=== PATIENT | female | born 1940 | race Caucasian/White ===

== ENCOUNTER 2017-09-18 19:41 | Inpatient (IN) | payer MEDICARE, OTHER ==
[~2017-09-18] VITALS: Ht 172.7 cm; Wt 75.6 kg
[2017-09-18] MEDS ORDERED: MELO-107 PO (20:01)
[2017-09-18] MEDS ORDERED: OMEP10 PO (20:01)
[2017-09-18 21:12] LABS: BASOPHILS # (AUTO) 0.03 K/uL (0.00-0.20); BASOPHILS % (AUTO) 0.3 % (0.0-2.0); EOSINOPHILS # (AUTO) 0.19 K/uL (0.00-0.70); EOSINOPHILS % (AUTO) 2.26 % (1.0-6.0); HEMATOCRIT 35.1 % (36-46); HEMOGLOBIN 11.6 g/dL (12.0-16.0); LYMPHOCYTES # (AUTO) 1.1 K/uL (1.0-4.8); LYMPHOCYTES % (AUTO) 13.5 % (22.0-44.0); MEAN CORPUSCULAR HEMOGLOBIN 27.6 pg (26.0-34.0); MEAN CORPUSCULAR HGB CONC 33.1 G/dL (31.0-37.0); MEAN CORPUSCULAR VOLUME 83 fL (80-100); MONOCYTES # (AUTO) 0.6 K/uL (0.1-1.0); MONOCYTES % (AUTO) 7.1 % (2.0-9.0); NEUTROPHILS # (AUTO) 6.5 K/uL (1.8-7.7); NEUTROPHILS % (AUTO) 76.9 % (40.0-70.0); PLATELET COUNT (AUTO) 237 K/uL (150-450); RED BLOOD CELL COUNT(AUTO) 4.21 MIL/uL (4.00-5.20); RED CELL DISTRIBUTION WIDTH 17.4 % (11.5-14.5); WHITE BLOOD COUNT (AUTO) 8.5 K/uL (4.5-11.0)
[2017-09-18 21:24] LABS: ANION GAP 12 mmol/L (8-16); CALCIUM, TOTAL 8.9 mg/dL (8.8-10.5); CARBON DIOXIDE 24 mmol/L (22-29); CHLORIDE 107 mmol/L (98-107); CREATININE 1.19 mg/dL (0.60-1.30); GLOMERULAR FILTR. RATE CALC 44 mL/min (>60); POTASSIUM 3.3 mmol/L (3.5-5.1); SODIUM SERUM 143 mmol/L (136-145); UREA NITROGEN, BLOOD 24 mg/dL (7-18)
[2017-09-18 21:26] LABS: PROTHROMBIN TIME 10.9 SEC (9.4-11.6)
[2017-09-18] MEDS ORDERED: SODIUM CHLORIDE 0.9% 1,000 ML IV ONE (21:45)
[2017-09-18 21:49] LABS: ALANINE AMINOTRANSFERASE 23 U/L (12-78); ALBUMIN 3.3 g/dL (3.4-5.0); ASPARTATE AMINOTRANSFERASE 19 U/L (15-37); BILIRUBIN,TOTAL 0.4 mg/dL (0.1-1.0); CREATINE KINASE MB 1.2 ng/mL (0-5); CREATINE KINASE, TOTAL 82 U/L (26-192); TOTAL PROTEIN, SERUM 6.9 g/dL (6.4-8.2)
[2017-09-18] MEDS ORDERED: MAGNESIUM HYDROXIDE SUSPENSION 30 ML UDCUP PO PRN (22:00)
[2017-09-18 22:10] LABS: B-TYPE NATRIURETIC PEPTIDE 15 pg/mL (0-100)
[2017-09-18 22:31] LABS: RBC MORPHOLOGY COMMENT ABNORMAL RBC MORPH
[2017-09-18 23:25] VITALS: BP 113/69
[2017-09-18] MEDS ORDERED: PNEUMOCOCCAL VACCINE POLYVALENT 0.5 ML VIAL [PPSV23] IM ONE (23:45)
[2017-09-19] VITALS (8 sets, daily range): BP systolic 81–130; BP diastolic 55–96
[2017-09-19] MEDS ORDERED: INFLUENZA VIRUS VACCINE QVS 2017-18 (3YR+)/PF 60 MCG/0.5 ML SYRINGE IM ONE (01:30)
[2017-09-19 02:57] LABS: APPEARANCE,URINE CLOUDY (CLEAR); GLUCOSE, URINE (UA) NEGATIVE (NEGATIVE); KETONES,URINE TRACE mg/dL (NEGATIVE); LEUKOCYTE ESTERASE ,URINE MODERATE (NEGATIVE); OCCULT BLOOD,URINE LARGE (NEGATIVE); PROTEIN,URINE TRACE (NEGATIVE)
[2017-09-19 02:59] LABS: ADD UA MICROSCOPIC YES
[2017-09-19 03:13] LABS: SQUAMOUS EPITHELIAL CELL,UR Few /LPF (None Seen)
[2017-09-19] MEDS: POTASSIUM CHLORIDE 20 MEQ ER TABLET PO PRN ×2 (05:10→11:26)
[2017-09-19] MEDS ORDERED: PEG 3350/NA SULF,BICARB,CL/KCL 4000 ML SOLUTION PO ONE (08:30)
[2017-09-19] MEDS: PANTOPRAZOLE SODIUM 40 MG/VIAL IVP SCH (09:26)
[2017-09-19] MEDS: DOCUSATE SODIUM 100 MG CAPSULE PO SCH ×2 (09:26→21:00)
[2017-09-19 18:46] LABS: BASOPHILS % (AUTO) 0.3 % (0.0-2.0); EOSINOPHILS % (AUTO) 2.4 % (1.0-6.0); HEMOGLOBIN 10.2 g/dL (12.0-16.0); LYMPHOCYTES % (AUTO) 12.9 % (22.0-44.0); MEAN CORPUSCULAR HEMOGLOBIN 27.3 pg (26.0-34.0); MEAN CORPUSCULAR HGB CONC 32.9 G/dL (31.0-37.0); MEAN CORPUSCULAR VOLUME 83 fL (80-100); MONOCYTES # (AUTO) 0.5 K/uL (0.1-1.0); MONOCYTES % (AUTO) 6.7 % (2.0-9.0); NEUTROPHILS # (AUTO) 5.9 K/uL (1.8-7.7); NEUTROPHILS % (AUTO) 77.7 % (40.0-70.0); PLATELET COUNT (AUTO) 219 K/uL (150-450); RED BLOOD CELL COUNT(AUTO) 3.74 MIL/uL (4.00-5.20); RED CELL DISTRIBUTION WIDTH 17.6 % (11.5-14.5); WHITE BLOOD COUNT (AUTO) 7.6 K/uL (4.5-11.0)
[2017-09-19] MEDS ORDERED: SODIUM CHLORIDE 0.9% 1,000 ML IV ONE (21:45)
[2017-09-19 22:16] LABS: RBC MORPHOLOGY COMMENT ABNORMAL RBC MORPH
[2017-09-19 22:33] LABS: BASOPHILS % (AUTO) 0.1 % (0.0-2.0); EOSINOPHILS % (AUTO) 0.9 % (1.0-6.0); HEMATOCRIT 22.3 % (36-46); HEMOGLOBIN 7.4 g/dL (12.0-16.0); LYMPHOCYTES # (AUTO) 0.9 K/uL (1.0-4.8); LYMPHOCYTES % (AUTO) 7.3 % (22.0-44.0); MEAN CORPUSCULAR HEMOGLOBIN 27.6 pg (26.0-34.0); MEAN CORPUSCULAR HGB CONC 33.4 G/dL (31.0-37.0); MEAN CORPUSCULAR VOLUME 83 fL (80-100); MONOCYTES # (AUTO) 0.5 K/uL (0.1-1.0); MONOCYTES % (AUTO) 4.6 % (2.0-9.0); NEUTROPHILS # (AUTO) 10.2 K/uL (1.8-7.7); PLATELET COUNT (AUTO) 172 K/uL (150-450); RED BLOOD CELL COUNT(AUTO) 2.69 MIL/uL (4.00-5.20); RED CELL DISTRIBUTION WIDTH 17.8 % (11.5-14.5); WHITE BLOOD COUNT (AUTO) 11.7 K/uL (4.5-11.0)
[2017-09-19 22:34] LABS: NEUTROPHILS % (AUTO) 87.1 % (40.0-70.0)
[2017-09-19] MEDS: SODIUM CHLORIDE 0.9% 1,000 ML IV SCH (22:41)
[2017-09-19] MEDS ORDERED: SODIUM CHLORIDE 0.9% 250 ML IV ONE (23:23)
[2017-09-20] VITALS (14 sets, daily range): BP systolic 83–129; BP diastolic 56–94
[2017-09-20 06:23] LABS: HEMOGLOBIN 9.3 g/dL (12.0-16.0)
[2017-09-20] MEDS: PANTOPRAZOLE SODIUM 40 MG/VIAL IVP SCH (08:18)
[2017-09-20] MEDS: DOCUSATE SODIUM 100 MG CAPSULE PO SCH ×2 (09:00→21:00)
[2017-09-20] MEDS: SODIUM CHLORIDE 0.9% 1,000 ML IV SCH (09:25)
[2017-09-20 11:32] LABS: HEMATOCRIT 26.1 % (36-46); HEMOGLOBIN 8.7 g/dL (12.0-16.0)
[2017-09-20] MEDS ORDERED: SODIUM CHLORIDE 0.9% 1,000 ML IV ONE ×2 (13:40→14:00)
[2017-09-20 17:55] LABS: HEMATOCRIT 23.8 % (36-46); HEMOGLOBIN 7.9 g/dL (12.0-16.0)
[2017-09-20] MEDS ORDERED: IOVERSOL 320 MG/ML 100 ML VIAL ONE (19:08)
[2017-09-20] MEDS ORDERED: SODIUM CHLORIDE 0.9% 500 ML IV ONE (22:44)
[2017-09-21] VITALS (10 sets, daily range): BP systolic 106–137; BP diastolic 52–83
[2017-09-21] MEDS ORDERED: PROPOFOL 1% 20 ML VIAL IVP ONE (00:47)
[2017-09-21] MEDS ORDERED: LIDOCAINE HCL/PF 2% 5 ML VIAL IM ONE (00:47)
[2017-09-21] MEDS: SODIUM CHLORIDE 0.9% 1,000 ML IV SCH (01:25)
[2017-09-21 05:39] LABS: ANION GAP 8 mmol/L (8-16); CALCIUM, TOTAL 7.7 mg/dL (8.8-10.5); CARBON DIOXIDE 24 mmol/L (22-29); CHLORIDE 113 mmol/L (98-107); CREATININE 0.71 mg/dL (0.60-1.30); GLOMERULAR FILTR. RATE CALC > 60 mL/min (>60); POTASSIUM 3.2 mmol/L (3.5-5.1); SODIUM SERUM 145 mmol/L (136-145); UREA NITROGEN, BLOOD 5 mg/dL (7-18)
[2017-09-21] MEDS: ACETAMINOPHEN 325 MG TABLET PO PRN (06:03)
[2017-09-21 06:06] LABS: BASOPHILS % (AUTO) 0.2 % (0.0-2.0); EOSINOPHILS % (AUTO) 2.2 % (1.0-6.0); HEMATOCRIT 24.5 % (36-46); HEMOGLOBIN 8.3 g/dL (12.0-16.0); MEAN CORPUSCULAR HEMOGLOBIN 27.9 pg (26.0-34.0); MEAN CORPUSCULAR HGB CONC 33.7 G/dL (31.0-37.0); MEAN CORPUSCULAR VOLUME 83 fL (80-100); MONOCYTES # (AUTO) 0.6 K/uL (0.1-1.0); MONOCYTES % (AUTO) 7.5 % (2.0-9.0); NEUTROPHILS # (AUTO) 5.9 K/uL (1.8-7.7); NEUTROPHILS % (AUTO) 77.1 % (40.0-70.0); PLATELET COUNT (AUTO) 151 K/uL (150-450); RED BLOOD CELL COUNT(AUTO) 2.97 MIL/uL (4.00-5.20); RED CELL DISTRIBUTION WIDTH 17.2 % (11.5-14.5); WHITE BLOOD COUNT (AUTO) 7.6 K/uL (4.5-11.0)
[2017-09-21] MEDS: POTASSIUM CHLORIDE 20 MEQ ER TABLET PO PRN (06:37)
[2017-09-21 06:54] LABS: RBC MORPHOLOGY COMMENT ABNORMAL RBC MORPH
[2017-09-21] MEDS: DOCUSATE SODIUM 100 MG CAPSULE PO SCH ×2 (08:44→20:25)
[2017-09-21] MEDS: PANTOPRAZOLE SODIUM 40 MG/VIAL IVP SCH (08:44)
[2017-09-22] VITALS (25 sets, daily range): BP systolic 96–142; BP diastolic 50–80
[2017-09-22] MEDS ORDERED: SODIUM CHLORIDE 0.9% 0 ML IV ONE (05:06)
[2017-09-22] MEDS ORDERED: SODIUM CHLORIDE 0.9% 500 ML IV ONE (05:07)
[2017-09-22] MEDS ORDERED: SODIUM CHLORIDE 0.9% 250 ML IV ONE (05:15)
[2017-09-22] MEDS: POTASSIUM CHLORIDE 20 MEQ ER TABLET PO PRN (05:16)
[2017-09-22 05:43] LABS: HEMATOCRIT 20.3 % (36-46); HEMOGLOBIN 6.8 g/dL (12.0-16.0)
[2017-09-22] MEDS: PANTOPRAZOLE SODIUM 40 MG/VIAL IVP SCH (08:06)
[2017-09-22] MEDS: DOCUSATE SODIUM 100 MG CAPSULE PO SCH ×2 (08:06→20:16)
[2017-09-22] MEDS: PIPERACILLIN/TAZO 3.375 GM/D5W 50 ML IV SCH ×3 (09:37→21:19)
[2017-09-22 11:55] LABS: INR 1.1 (0.9-1.1); PROTHROMBIN TIME 11.1 SEC (9.4-11.6)
[2017-09-22] MEDS ORDERED: IOVERSOL 350 MG/ML 100 ML VIAL ONE (12:19)
[2017-09-22 14:29] LABS: BASOPHILS % (AUTO) 0.4 % (0.0-2.0); EOSINOPHILS % (AUTO) 2.5 % (1.0-6.0); HEMATOCRIT 29.2 % (36-46); HEMOGLOBIN 10.1 g/dL (12.0-16.0); LYMPHOCYTES # (AUTO) 0.8 K/uL (1.0-4.8); LYMPHOCYTES % (AUTO) 10.8 % (22.0-44.0); MEAN CORPUSCULAR HEMOGLOBIN 29.3 pg (26.0-34.0); MEAN CORPUSCULAR HGB CONC 34.5 G/dL (31.0-37.0); MEAN CORPUSCULAR VOLUME 85 fL (80-100); MONOCYTES # (AUTO) 0.5 K/uL (0.1-1.0); MONOCYTES % (AUTO) 6.5 % (2.0-9.0); NEUTROPHILS # (AUTO) 5.7 K/uL (1.8-7.7); NEUTROPHILS % (AUTO) 79.8 % (40.0-70.0); PLATELET COUNT (AUTO) 158 K/uL (150-450); RED BLOOD CELL COUNT(AUTO) 3.44 MIL/uL (4.00-5.20); RED CELL DISTRIBUTION WIDTH 16.6 % (11.5-14.5); WHITE BLOOD COUNT (AUTO) 7.1 K/uL (4.5-11.0)
[2017-09-22] MEDS ORDERED: MIDAZOLAM HCL 2 MG/2 ML VIAL ONE (14:38)
[2017-09-22] MEDS ORDERED: FentaNYL CITRATE-PF 100 MCG/2 ML VIAL ONE (14:38)
[2017-09-22] MEDS ORDERED: LIDOCAINE HCL/PF 1% 30 ML VIAL ONE (14:38)
[2017-09-22] MEDS ORDERED: HEPARIN SODIUM 1000 UNITS/NS 500 ML ONE ×2 (14:38→14:54)
[2017-09-22] MEDS ORDERED: IOHEXOL 300 MG/ML 100 ML VIAL ONE (15:45)
[2017-09-22] MEDS ORDERED: IOHEXOL 300 MG/ML 50 ML VIAL ONE (16:22)
[2017-09-22] MEDS ORDERED: GLUCAGON,HUMAN RECOMBINANT 1 MG VIAL ONE (16:27)
[2017-09-22] MEDS ORDERED: GELATIN SPONGE,ABSORBABLE 12-7 MM TP ONE (16:31)
[2017-09-22] MEDS ORDERED: GLUCAGON,HUMAN RECOMBINANT 1 MG VIAL IVP ONE (16:32)
[2017-09-22] MEDS ORDERED: MIDAZOLAM HCL 2 MG/2 ML VIAL IVP ONE (17:05)
[2017-09-22] MEDS ORDERED: FentaNYL CITRATE-PF 100 MCG/2 ML VIAL IVP ONE (17:10)
[2017-09-22] MEDS ORDERED: FentaNYL CITRATE-PF 100 MCG/2 ML VIAL IVP PRN (17:45)
[2017-09-22] MEDS: OxyCODONE HCL/ACETAMINOPHEN 10-325 MG TABLET PO PRN ×2 (18:16→22:10)
[2017-09-22] MEDS: CeFAZolin 1 GM/DEXTROSE 50 ML IV SCH (18:28)
[2017-09-22] MEDS: MetroNIDAZOLE 500 MG/NACL 100 ML IV SCH (20:12)
[2017-09-22 20:43] LABS: EOSINOPHILS % (AUTO) 0.1 % (1.0-6.0); HEMATOCRIT 32.6 % (36-46); LYMPHOCYTES # (AUTO) 0.7 K/uL (1.0-4.8); LYMPHOCYTES % (AUTO) 3.7 % (22.0-44.0); MEAN CORPUSCULAR HEMOGLOBIN 28.9 pg (26.0-34.0); MEAN CORPUSCULAR HGB CONC 33.6 G/dL (31.0-37.0); MEAN CORPUSCULAR VOLUME 86 fL (80-100); MONOCYTES # (AUTO) 0.3 K/uL (0.1-1.0); MONOCYTES % (AUTO) 1.7 % (2.0-9.0); NEUTROPHILS # (AUTO) 17.1 K/uL (1.8-7.7); NEUTROPHILS % (AUTO) 94.5 % (40.0-70.0); PLATELET COUNT (AUTO) 191 K/uL (150-450); RED BLOOD CELL COUNT(AUTO) 3.79 MIL/uL (4.00-5.20); RED CELL DISTRIBUTION WIDTH 16.5 % (11.5-14.5); WHITE BLOOD COUNT (AUTO) 18.1 K/uL (4.5-11.0)
[2017-09-23] VITALS (8 sets, daily range): BP systolic 112–142; BP diastolic 56–95
[2017-09-23] MEDS: CeFAZolin 1 GM/DEXTROSE 50 ML IV SCH ×3 (01:04→17:17)
[2017-09-23] MEDS: PIPERACILLIN/TAZO 3.375 GM/D5W 50 ML IV SCH ×4 (01:59→21:41)
[2017-09-23 02:25] LABS: EOSINOPHILS % (AUTO) 0 % (1.0-6.0); HEMATOCRIT 32.8 % (36-46); HEMOGLOBIN 11.1 g/dL (12.0-16.0); LYMPHOCYTES # (AUTO) 0.4 K/uL (1.0-4.8); LYMPHOCYTES % (AUTO) 2.4 % (22.0-44.0); MEAN CORPUSCULAR HGB CONC 33.9 G/dL (31.0-37.0); MEAN CORPUSCULAR VOLUME 86 fL (80-100); MONOCYTES # (AUTO) 0.6 K/uL (0.1-1.0); MONOCYTES % (AUTO) 3.6 % (2.0-9.0); NEUTROPHILS # (AUTO) 14.6 K/uL (1.8-7.7); PLATELET COUNT (AUTO) 190 K/uL (150-450); RED BLOOD CELL COUNT(AUTO) 3.83 MIL/uL (4.00-5.20); RED CELL DISTRIBUTION WIDTH 16.5 % (11.5-14.5); WHITE BLOOD COUNT (AUTO) 15.5 K/uL (4.5-11.0)
[2017-09-23] MEDS: OxyCODONE HCL/ACETAMINOPHEN 10-325 MG TABLET PO PRN ×2 (02:51→09:43)
[2017-09-23] MEDS: MetroNIDAZOLE 500 MG/NACL 100 ML IV SCH ×3 (04:36→20:25)
[2017-09-23 08:17] LABS: BASOPHILS # (AUTO) 0.11 K/uL (0.00-0.20); BASOPHILS % (AUTO) 0.4 % (0.0-2.0); EOSINOPHILS % (AUTO) 0 % (1.0-6.0); HEMATOCRIT 31.6 % (36-46); HEMOGLOBIN 10.7 g/dL (12.0-16.0); LYMPHOCYTES # (AUTO) 0.4 K/uL (1.0-4.8); LYMPHOCYTES % (AUTO) 1.5 % (22.0-44.0); MEAN CORPUSCULAR HEMOGLOBIN 28.9 pg (26.0-34.0); MEAN CORPUSCULAR HGB CONC 33.8 G/dL (31.0-37.0); MEAN CORPUSCULAR VOLUME 85 fL (80-100); MONOCYTES % (AUTO) 4.2 % (2.0-9.0); NEUTROPHILS # (AUTO) 22.9 K/uL (1.8-7.7); PLATELET COUNT (AUTO) 195 K/uL (150-450); RED BLOOD CELL COUNT(AUTO) 3.69 MIL/uL (4.00-5.20); RED CELL DISTRIBUTION WIDTH 16.5 % (11.5-14.5); WHITE BLOOD COUNT (AUTO) 24.4 K/uL (4.5-11.0)
[2017-09-23 08:20] LABS: NEUTROPHILS % (AUTO) 93.9 % (40.0-70.0)
[2017-09-23] MEDS: PANTOPRAZOLE SODIUM 40 MG/VIAL IVP SCH (08:58)
[2017-09-23 09:03] LABS: RBC MORPHOLOGY COMMENT ABNORMAL RBC MORPH
[2017-09-23] MEDS: DOCUSATE SODIUM 100 MG CAPSULE PO SCH ×2 (09:36→20:24)
[2017-09-23 14:20] LABS: EOSINOPHILS % (AUTO) 0 % (1.0-6.0); HEMOGLOBIN 10.9 g/dL (12.0-16.0); LYMPHOCYTES # (AUTO) 0.4 K/uL (1.0-4.8); LYMPHOCYTES % (AUTO) 1.5 % (22.0-44.0); MEAN CORPUSCULAR HEMOGLOBIN 29.4 pg (26.0-34.0); MEAN CORPUSCULAR HGB CONC 33.9 G/dL (31.0-37.0); MEAN CORPUSCULAR VOLUME 87 fL (80-100); MONOCYTES # (AUTO) 1.3 K/uL (0.1-1.0); MONOCYTES % (AUTO) 4.8 % (2.0-9.0); NEUTROPHILS # (AUTO) 25.7 K/uL (1.8-7.7); NEUTROPHILS % (AUTO) 93.7 % (40.0-70.0); PLATELET COUNT (AUTO) 187 K/uL (150-450); RED BLOOD CELL COUNT(AUTO) 3.69 MIL/uL (4.00-5.20); RED CELL DISTRIBUTION WIDTH 16.2 % (11.5-14.5); WHITE BLOOD COUNT (AUTO) 27.4 K/uL (4.5-11.0)
[2017-09-23 14:43] LABS: RBC MORPHOLOGY COMMENT ABNORMAL RBC MORPH
[2017-09-23 19:48] LABS: HEMATOCRIT 30.4 % (36-46); HEMOGLOBIN 10.3 g/dL (12.0-16.0); MEAN CORPUSCULAR HEMOGLOBIN 29.2 pg (26.0-34.0); MEAN CORPUSCULAR HGB CONC 33.9 G/dL (31.0-37.0); MEAN CORPUSCULAR VOLUME 86 fL (80-100); PLATELET COUNT (AUTO) 188 K/uL (150-450); RED BLOOD CELL COUNT(AUTO) 3.53 MIL/uL (4.00-5.20); RED CELL DISTRIBUTION WIDTH 16.6 % (11.5-14.5)
[2017-09-23 19:56] LABS: WHITE BLOOD COUNT (AUTO) 30.8 K/uL (4.5-11.0)
[2017-09-23] MEDS: POTASSIUM CHLORIDE 20 MEQ ER TABLET PO PRN (20:24)
[2017-09-23 21:19] LABS: BAND NEUTROPHILS % (MANUAL) 30 % (1-5); LYMPHOCYTES % (MANUAL) 1 % (22-44); TOTAL CELLS COUNTED 100
[2017-09-23 21:21] LABS: RBC MORPHOLOGY COMMENT ABNORMAL RBC MORPH
[2017-09-24] MEDS: ACETAMINOPHEN 325 MG TABLET PO PRN ×2 (00:57→10:40)
[2017-09-24] MEDS: CeFAZolin 1 GM/DEXTROSE 50 ML IV SCH ×3 (01:01→17:20)
[2017-09-24] MEDS: PIPERACILLIN/TAZO 3.375 GM/D5W 50 ML IV SCH ×4 (03:16→22:03)
[2017-09-24 03:39] LABS: EOSINOPHILS % (AUTO) 0 % (1.0-6.0); HEMATOCRIT 29.4 % (36-46); HEMOGLOBIN 9.9 g/dL (12.0-16.0); LYMPHOCYTES # (AUTO) 0.5 K/uL (1.0-4.8); LYMPHOCYTES % (AUTO) 1.7 % (22.0-44.0); MEAN CORPUSCULAR HEMOGLOBIN 28.9 pg (26.0-34.0); MEAN CORPUSCULAR HGB CONC 33.5 G/dL (31.0-37.0); MEAN CORPUSCULAR VOLUME 86 fL (80-100); MONOCYTES % (AUTO) 3.5 % (2.0-9.0); NEUTROPHILS # (AUTO) 27.1 K/uL (1.8-7.7); PLATELET COUNT (AUTO) 188 K/uL (150-450); RED BLOOD CELL COUNT(AUTO) 3.41 MIL/uL (4.00-5.20); WHITE BLOOD COUNT (AUTO) 28.6 K/uL (4.5-11.0)
[2017-09-24 03:41] LABS: NEUTROPHILS % (AUTO) 94.9 % (40.0-70.0)
[2017-09-24 04:04] LABS: RBC MORPHOLOGY COMMENT ABNORMAL RBC MORPH
[2017-09-24 04:13] VITALS: BP 112/73
[2017-09-24] MEDS: MetroNIDAZOLE 500 MG/NACL 100 ML IV SCH ×3 (04:32→20:28)
[2017-09-24 07:30] VITALS: BP 150/85
[2017-09-24] MEDS: PANTOPRAZOLE SODIUM 40 MG/VIAL IVP SCH (07:54)
[2017-09-24] MEDS: DOCUSATE SODIUM 100 MG CAPSULE PO SCH ×2 (07:55→20:28)
[2017-09-24 08:17] LABS: EOSINOPHILS % (AUTO) 0 % (1.0-6.0); HEMATOCRIT 28.6 % (36-46); HEMOGLOBIN 9.7 g/dL (12.0-16.0); LYMPHOCYTES # (AUTO) 0.5 K/uL (1.0-4.8); MEAN CORPUSCULAR HEMOGLOBIN 29.3 pg (26.0-34.0); MEAN CORPUSCULAR HGB CONC 33.9 G/dL (31.0-37.0); MEAN CORPUSCULAR VOLUME 86 fL (80-100); MONOCYTES # (AUTO) 0.9 K/uL (0.1-1.0); MONOCYTES % (AUTO) 3.5 % (2.0-9.0); NEUTROPHILS # (AUTO) 25.8 K/uL (1.8-7.7); PLATELET COUNT (AUTO) 184 K/uL (150-450); RED BLOOD CELL COUNT(AUTO) 3.31 MIL/uL (4.00-5.20); RED CELL DISTRIBUTION WIDTH 17.1 % (11.5-14.5); WHITE BLOOD COUNT (AUTO) 27.3 K/uL (4.5-11.0)
[2017-09-24 08:20] LABS: NEUTROPHILS % (AUTO) 94.5 % (40.0-70.0)
[2017-09-24] MEDS: OxyCODONE HCL/ACETAMINOPHEN 10-325 MG TABLET PO PRN ×2 (08:23→12:52)
[2017-09-24] MEDS: POTASSIUM CHL 10 MEQ/WATER 50 ML IV PRN ×2 (10:54→12:56)
[2017-09-24 11:56] VITALS: BP 110/74
[2017-09-24] MEDS ORDERED: POTASSIUM CHLORIDE 20 MEQ ER TABLET PO ONE (13:15)
[2017-09-24 15:01] LABS: HEMATOCRIT 27.3 % (36-46); HEMOGLOBIN 9.1 g/dL (12.0-16.0); MEAN CORPUSCULAR HGB CONC 33.5 G/dL (31.0-37.0); MEAN CORPUSCULAR VOLUME 86 fL (80-100); PLATELET COUNT (AUTO) 179 K/uL (150-450); RED BLOOD CELL COUNT(AUTO) 3.15 MIL/uL (4.00-5.20); RED CELL DISTRIBUTION WIDTH 17.1 % (11.5-14.5); WHITE BLOOD COUNT (AUTO) 25.1 K/uL (4.5-11.0)
[2017-09-24 15:43] VITALS: BP 113/59
[2017-09-24 15:44] LABS: BAND NEUTROPHILS % (MANUAL) 17 % (1-5); LYMPHOCYTES % (MANUAL) 5 % (22-44); TOTAL CELLS COUNTED 100
[2017-09-24 15:45] LABS: RBC MORPHOLOGY COMMENT ABNORMAL RBC MORPH
[2017-09-24 19:52] VITALS: BP 97/53
[2017-09-24] MEDS: POTASSIUM CHLORIDE 20 MEQ ER TABLET PO PRN (20:28)
[2017-09-24 21:51] LABS: HEMATOCRIT 26.9 % (36-46); MEAN CORPUSCULAR HGB CONC 33.4 G/dL (31.0-37.0); MEAN CORPUSCULAR VOLUME 87 fL (80-100); PLATELET COUNT (AUTO) 179 K/uL (150-450); RED CELL DISTRIBUTION WIDTH 16.9 % (11.5-14.5); WHITE BLOOD COUNT (AUTO) 22.2 K/uL (4.5-11.0)
[2017-09-24 22:10] LABS: BAND NEUTROPHILS % (MANUAL) 12 % (1-5); LYMPHOCYTES % (MANUAL) 3 % (22-44); TOTAL CELLS COUNTED 100
[2017-09-24 22:11] LABS: RBC MORPHOLOGY COMMENT ABNORMAL RBC MORPH; WBC MORPHOLOGY TOXIC VACUOLATION
[2017-09-25] VITALS (9 sets, daily range): BP systolic 101–126; BP diastolic 59–87
[2017-09-25] MEDS: CeFAZolin 1 GM/DEXTROSE 50 ML IV SCH ×3 (01:28→17:41)
[2017-09-25] MEDS: PIPERACILLIN/TAZO 3.375 GM/D5W 50 ML IV SCH ×4 (03:29→22:14)
[2017-09-25] MEDS: MetroNIDAZOLE 500 MG/NACL 100 ML IV SCH ×3 (04:27→20:41)
[2017-09-25 09:02] LABS: EOSINOPHILS % (AUTO) 0 % (1.0-6.0); HEMOGLOBIN 10.1 g/dL (12.0-16.0); LYMPHOCYTES # (AUTO) 0.3 K/uL (1.0-4.8); LYMPHOCYTES % (AUTO) 1.2 % (22.0-44.0); MEAN CORPUSCULAR HEMOGLOBIN 29.3 pg (26.0-34.0); MEAN CORPUSCULAR HGB CONC 33.8 G/dL (31.0-37.0); MEAN CORPUSCULAR VOLUME 87 fL (80-100); MONOCYTES # (AUTO) 0.5 K/uL (0.1-1.0); MONOCYTES % (AUTO) 2.1 % (2.0-9.0); NEUTROPHILS # (AUTO) 22.5 K/uL (1.8-7.7); PLATELET COUNT (AUTO) 221 K/uL (150-450); RED BLOOD CELL COUNT(AUTO) 3.46 MIL/uL (4.00-5.20); RED CELL DISTRIBUTION WIDTH 17.2 % (11.5-14.5); WHITE BLOOD COUNT (AUTO) 23.3 K/uL (4.5-11.0)
[2017-09-25 09:13] LABS: MAGNESIUM 1.7 mg/dL (1.80-2.40)
[2017-09-25 09:16] LABS: NEUTROPHILS % (AUTO) 96.7 % (40.0-70.0)
[2017-09-25] MEDS: PANTOPRAZOLE SODIUM 40 MG/VIAL IVP SCH (10:02)
[2017-09-25] MEDS: DOCUSATE SODIUM 100 MG CAPSULE PO SCH ×2 (10:02→22:14)
[2017-09-25] MEDS ORDERED: MAGNESIUM SULFATE 2 GM in DEXTROSE 5%-WATER 50 ML IV PRN (10:30)
[2017-09-25] MEDS ORDERED: MAGNESIUM SULFATE 4 GM/WATER 100 ML IV PRN (10:30)
[2017-09-25] MEDS: OxyCODONE HCL/ACETAMINOPHEN 10-325 MG TABLET PO PRN (10:32)
[2017-09-25 11:08] LABS: ALBUMIN 2.2 g/dL (3.4-5.0)
[2017-09-25] MEDS: POTASSIUM CHL 20 MEQ/0.9% NS 1,000 ML IV SCH (13:18)
[2017-09-25] MEDS: MAGNESIUM OXIDE 400 MG TABLET PO PRN ×2 (13:18→18:38)
[2017-09-25] MEDS: ONDANSETRON HCL 4 MG/2 ML VIAL IVP PRN (18:38)
[2017-09-26] MEDS: CeFAZolin 1 GM/DEXTROSE 50 ML IV SCH ×3 (01:05→18:41)
[2017-09-26] MEDS: PIPERACILLIN/TAZO 3.375 GM/D5W 50 ML IV SCH ×4 (02:43→22:03)
[2017-09-26] MEDS: MAGNESIUM OXIDE 400 MG TABLET PO PRN (02:44)
[2017-09-26] MEDS: MetroNIDAZOLE 500 MG/NACL 100 ML IV SCH ×3 (03:48→20:44)
[2017-09-26] MEDS: POTASSIUM CHL 20 MEQ/0.9% NS 1,000 ML IV SCH ×3 (03:48→16:58)
[2017-09-26 04:43] VITALS: BP 102/84
[2017-09-26] MEDS: OxyCODONE HCL/ACETAMINOPHEN 10-325 MG TABLET PO PRN ×2 (05:48→13:39)
[2017-09-26 06:07] LABS: EOSINOPHILS % (AUTO) 0.1 % (1.0-6.0); HEMOGLOBIN 10.3 g/dL (12.0-16.0); LYMPHOCYTES # (AUTO) 0.5 K/uL (1.0-4.8); LYMPHOCYTES % (AUTO) 2.3 % (22.0-44.0); MEAN CORPUSCULAR HEMOGLOBIN 28.8 pg (26.0-34.0); MEAN CORPUSCULAR HGB CONC 33.3 G/dL (31.0-37.0); MEAN CORPUSCULAR VOLUME 86 fL (80-100); MONOCYTES # (AUTO) 0.9 K/uL (0.1-1.0); MONOCYTES % (AUTO) 4.2 % (2.0-9.0); NEUTROPHILS # (AUTO) 20.5 K/uL (1.8-7.7); PLATELET COUNT (AUTO) 310 K/uL (150-450); RED BLOOD CELL COUNT(AUTO) 3.59 MIL/uL (4.00-5.20); RED CELL DISTRIBUTION WIDTH 17.6 % (11.5-14.5)
[2017-09-26 06:14] LABS: NEUTROPHILS % (AUTO) 93.4 % (40.0-70.0)
[2017-09-26 06:24] LABS: ALBUMIN 1.9 g/dL (3.4-5.0); BILIRUBIN,TOTAL 0.7 mg/dL (0.1-1.0); CALCIUM, TOTAL 8.3 mg/dL (8.8-10.5); CREATININE 1.1 mg/dL (0.60-1.30); MAGNESIUM 1.9 mg/dL (1.80-2.40); POTASSIUM 3.9 mmol/L (3.5-5.1); TOTAL PROTEIN, SERUM 5.6 g/dL (6.4-8.2)
[2017-09-26 07:30] VITALS: BP 126/76
[2017-09-26] MEDS: PANTOPRAZOLE SODIUM 40 MG/VIAL IVP SCH (07:55)
[2017-09-26] MEDS: DOCUSATE SODIUM 100 MG CAPSULE PO SCH ×2 (07:55→20:44)
[2017-09-26 08:43] LABS: RBC MORPHOLOGY COMMENT ABNORMAL RBC MORPH
[2017-09-26 11:25] VITALS: BP 106/79
[2017-09-26] MEDS ORDERED: LACTULOSE 20 GM/30 ML SOLUTION UDCUP PO PRN (13:15)
[2017-09-26 13:30] VITALS: BP 123/85
[2017-09-26 20:54] VITALS: BP 139/89
[2017-09-27 00:15] VITALS: BP 137/86
[2017-09-27] MEDS: CeFAZolin 1 GM/DEXTROSE 50 ML IV SCH ×3 (01:24→17:23)
[2017-09-27] MEDS: PIPERACILLIN/TAZO 3.375 GM/D5W 50 ML IV SCH ×4 (02:46→21:24)
[2017-09-27] MEDS: MetroNIDAZOLE 500 MG/NACL 100 ML IV SCH ×3 (03:35→19:44)
[2017-09-27] MEDS: ONDANSETRON HCL 4 MG/2 ML VIAL IVP PRN ×2 (03:35→13:53)
[2017-09-27 05:42] VITALS: BP 134/87
[2017-09-27] MEDS: POTASSIUM CHL 20 MEQ/0.9% NS 1,000 ML IV SCH ×3 (06:01→21:24)
[2017-09-27 07:20] LABS: EOSINOPHILS % (AUTO) 0.4 % (1.0-6.0); HEMATOCRIT 30.5 % (36-46); HEMOGLOBIN 10.2 g/dL (12.0-16.0); LYMPHOCYTES # (AUTO) 0.4 K/uL (1.0-4.8); LYMPHOCYTES % (AUTO) 2.2 % (22.0-44.0); MEAN CORPUSCULAR HGB CONC 33.6 G/dL (31.0-37.0); MEAN CORPUSCULAR VOLUME 86 fL (80-100); MONOCYTES # (AUTO) 0.7 K/uL (0.1-1.0); MONOCYTES % (AUTO) 4.5 % (2.0-9.0); PLATELET COUNT (AUTO) 369 K/uL (150-450); RED BLOOD CELL COUNT(AUTO) 3.53 MIL/uL (4.00-5.20); RED CELL DISTRIBUTION WIDTH 17.6 % (11.5-14.5); WHITE BLOOD COUNT (AUTO) 16.2 K/uL (4.5-11.0)
[2017-09-27 07:24] LABS: NEUTROPHILS % (AUTO) 92.9 % (40.0-70.0)
[2017-09-27 07:37] LABS: ALBUMIN 1.9 g/dL (3.4-5.0); BILIRUBIN,TOTAL 0.5 mg/dL (0.1-1.0); CALCIUM, TOTAL 8.2 mg/dL (8.8-10.5); CREATININE 1.08 mg/dL (0.60-1.30); MAGNESIUM 2.2 mg/dL (1.80-2.40); POTASSIUM 4.3 mmol/L (3.5-5.1); TOTAL PROTEIN, SERUM 5.9 g/dL (6.4-8.2)
[2017-09-27 08:00] VITALS: BP 137/90
[2017-09-27] MEDS ORDERED: FentaNYL CITRATE-PF 100 MCG/2 ML VIAL ONE (08:13)
[2017-09-27] MEDS ORDERED: MIDAZOLAM HCL 2 MG/2 ML VIAL ONE (08:13)
[2017-09-27] MEDS ORDERED: ONDANSETRON HCL 4 MG/2 ML VIAL IVP ONE (08:15)
[2017-09-27] MEDS ORDERED: IOVERSOL 350 MG/ML 100 ML VIAL ONE (08:39)
[2017-09-27 09:36] LABS: RBC MORPHOLOGY COMMENT ABNORMAL RBC MORPH
[2017-09-27] MEDS: PANTOPRAZOLE SODIUM 40 MG/VIAL IVP SCH (09:57)
[2017-09-27] MEDS: DOCUSATE SODIUM 100 MG CAPSULE PO SCH ×2 (10:01→21:00)
[2017-09-27] MEDS ORDERED: ALBUTEROL SULFATE 2.5 MG/0.5 ML NEB SOLUTION NEB PRN (11:15)
[2017-09-27] MEDS ORDERED: IPRATROPIUM BROMIDE 0.5 MG/2.5 ML NEB SOLUTION NEB PRN (11:15)
[2017-09-27 11:33] VITALS: BP 139/91
[2017-09-27] MEDS: OxyCODONE HCL/ACETAMINOPHEN 10-325 MG TABLET PO PRN (13:53)
[2017-09-27 15:45] VITALS: BP 135/86
[2017-09-27] MEDS: OXYGEN THERAPY IH SCH ×2 (19:44→20:07)
[2017-09-27] MEDS ORDERED: SODIUM CHLORIDE 0.9% 250 ML IV ONE (19:46)
[2017-09-27 20:06] VITALS: BP 133/89
[2017-09-27] MEDS: ALBUTEROL SULFATE 2.5 MG/0.5 ML NEB SOLUTION NEB SCH (20:06)
[2017-09-27] MEDS: IPRATROPIUM BROMIDE 0.5 MG/2.5 ML NEB SOLUTION NEB SCH (20:06)
[2017-09-28 00:25] VITALS: BP 132/96
[2017-09-28] MEDS: ALBUTEROL SULFATE 2.5 MG/0.5 ML NEB SOLUTION NEB SCH ×4 (02:26→19:51)
[2017-09-28] MEDS: IPRATROPIUM BROMIDE 0.5 MG/2.5 ML NEB SOLUTION NEB SCH ×4 (02:26→19:51)
[2017-09-28] MEDS: CeFAZolin 1 GM/DEXTROSE 50 ML IV SCH ×3 (02:27→19:26)
[2017-09-28] MEDS ORDERED: LORazepam 2 MG/ML VIAL IVP ONE (03:00)
[2017-09-28] MEDS: PIPERACILLIN/TAZO 3.375 GM/D5W 50 ML IV SCH ×4 (03:06→21:28)
[2017-09-28] MEDS: MetroNIDAZOLE 500 MG/NACL 100 ML IV SCH ×3 (04:03→19:51)
[2017-09-28 07:18] VITALS: BP 140/74
[2017-09-28] MEDS: OXYGEN THERAPY IH SCH ×2 (08:41→19:51)
[2017-09-28] MEDS: DOCUSATE SODIUM 100 MG CAPSULE PO SCH ×2 (09:00→19:52)
[2017-09-28 09:23] LABS: EOSINOPHILS # (AUTO) 0.09 K/uL (0.00-0.70); EOSINOPHILS % (AUTO) 0.88 % (1.0-6.0); HEMATOCRIT 28.6 % (36-46); HEMOGLOBIN 9.2 g/dL (12.0-16.0); LYMPHOCYTES # (AUTO) 0.3 K/uL (1.0-4.8); LYMPHOCYTES % (AUTO) 3.1 % (22.0-44.0); MEAN CORPUSCULAR HEMOGLOBIN 28.3 pg (26.0-34.0); MEAN CORPUSCULAR HGB CONC 32.3 G/dL (31.0-37.0); MEAN CORPUSCULAR VOLUME 88 fL (80-100); MONOCYTES # (AUTO) 0.9 K/uL (0.1-1.0); MONOCYTES % (AUTO) 8.5 % (2.0-9.0); NEUTROPHILS # (AUTO) 9.3 K/uL (1.8-7.7); PLATELET COUNT (AUTO) 376 K/uL (150-450); RED BLOOD CELL COUNT(AUTO) 3.27 MIL/uL (4.00-5.20); RED CELL DISTRIBUTION WIDTH 18.2 % (11.5-14.5); WHITE BLOOD COUNT (AUTO) 10.6 K/uL (4.5-11.0)
[2017-09-28 09:25] LABS: NEUTROPHILS % (AUTO) 87.5 % (40.0-70.0)
[2017-09-28] MEDS: POTASSIUM CHL 20 MEQ/0.9% NS 1,000 ML IV SCH ×2 (09:37→19:51)
[2017-09-28] MEDS: PANTOPRAZOLE SODIUM 40 MG/VIAL IVP SCH (09:39)
[2017-09-28 09:40] LABS: ALBUMIN 1.9 g/dL (3.4-5.0); BILIRUBIN,TOTAL 0.6 mg/dL (0.1-1.0); CALCIUM, TOTAL 8.1 mg/dL (8.8-10.5); CREATININE 1.01 mg/dL (0.60-1.30); POTASSIUM 4.2 mmol/L (3.5-5.1); TOTAL PROTEIN, SERUM 5.4 g/dL (6.4-8.2)
[2017-09-28 09:47] LABS: RBC MORPHOLOGY COMMENT ABNORMAL RBC MORPH
[2017-09-28 11:02] VITALS: BP 104/53
[2017-09-28 15:39] VITALS: BP 128/79
[2017-09-28 20:09] VITALS: BP 146/80
[2017-09-28] MEDS: ONDANSETRON HCL 4 MG/2 ML VIAL IVP PRN (21:28)
[2017-09-28] MEDS: MethylPREDNISolone SOD SUCC 125 MG/2 ML VIAL IVP SCH (23:29)
[2017-09-29 00:10] VITALS: BP 132/83
[2017-09-29] MEDS: CeFAZolin 1 GM/DEXTROSE 50 ML IV SCH ×2 (01:14→11:57)
[2017-09-29] MEDS: IPRATROPIUM BROMIDE 0.5 MG/2.5 ML NEB SOLUTION NEB SCH ×3 (02:00→14:25)
[2017-09-29] MEDS: ALBUTEROL SULFATE 2.5 MG/0.5 ML NEB SOLUTION NEB SCH ×3 (02:00→14:25)
[2017-09-29] MEDS: PIPERACILLIN/TAZO 3.375 GM/D5W 50 ML IV SCH ×2 (02:03→09:46)
[2017-09-29] MEDS: MetroNIDAZOLE 500 MG/NACL 100 ML IV SCH ×2 (03:42→14:21)
[2017-09-29] MEDS: POTASSIUM CHL 20 MEQ/0.9% NS 1,000 ML IV SCH (03:43)
[2017-09-29 05:19] VITALS: BP 142/87
[2017-09-29] MEDS: MethylPREDNISolone SOD SUCC 125 MG/2 ML VIAL IVP SCH ×2 (05:28→11:57)
[2017-09-29 07:09] LABS: ALBUMIN 1.9 g/dL (3.4-5.0); BILIRUBIN,TOTAL 0.7 mg/dL (0.1-1.0); CALCIUM, TOTAL 8.1 mg/dL (8.8-10.5); CREATININE 0.92 mg/dL (0.60-1.30); MAGNESIUM 2.4 mg/dL (1.80-2.40); POTASSIUM 4.4 mmol/L (3.5-5.1); TOTAL PROTEIN, SERUM 6.1 g/dL (6.4-8.2)
[2017-09-29 07:57] VITALS: BP 157/104
[2017-09-29] MEDS ORDERED: HydrALAZINE HCL 20 MG/ML VIAL IVP PRN (08:15)
[2017-09-29] MEDS: PANTOPRAZOLE SODIUM 40 MG/VIAL IVP SCH (09:47)
[2017-09-29] MEDS: DOCUSATE SODIUM 100 MG CAPSULE PO SCH (09:47)
[2017-09-29] MEDS: OXYGEN THERAPY IH SCH (09:47)
[2017-09-29 11:24] VITALS: BP 121/81
[2017-09-29 13:31] LABS: HEMATOCRIT 28.6 % (36-46); HEMOGLOBIN 9.4 g/dL (12.0-16.0); MEAN CORPUSCULAR HEMOGLOBIN 28.5 pg (26.0-34.0); MEAN CORPUSCULAR HGB CONC 32.8 G/dL (31.0-37.0); MEAN CORPUSCULAR VOLUME 87 fL (80-100); PLATELET COUNT (AUTO) 445 K/uL (150-450); RED CELL DISTRIBUTION WIDTH 18.4 % (11.5-14.5); WHITE BLOOD COUNT (AUTO) 15.6 K/uL (4.5-11.0)
[2017-09-29 14:17] LABS: BAND NEUTROPHILS % (MANUAL) 7 % (1-5); LYMPHOCYTES % (MANUAL) 2 % (22-44); RBC MORPHOLOGY COMMENT ABNORMAL RBC MORPH; TOTAL CELLS COUNTED 100
[2017-09-29 15:17] VITALS: BP 122/66
[2017-09-29 16:36] LABS: HEMATOCRIT 26.9 % (36-46); MEAN CORPUSCULAR HEMOGLOBIN 28.4 pg (26.0-34.0); MEAN CORPUSCULAR HGB CONC 33.5 G/dL (31.0-37.0); MEAN CORPUSCULAR VOLUME 85 fL (80-100); PLATELET COUNT (AUTO) 471 K/uL (150-450); RED BLOOD CELL COUNT(AUTO) 3.17 MIL/uL (4.00-5.20); RED CELL DISTRIBUTION WIDTH 18.1 % (11.5-14.5); WHITE BLOOD COUNT (AUTO) 16.6 K/uL (4.5-11.0)
[2017-09-29 17:18] LABS: BAND NEUTROPHILS % (MANUAL) 10 % (1-5); LYMPHOCYTES % (MANUAL) 2 % (22-44); TOTAL CELLS COUNTED 100
[2017-09-29 17:19] LABS: RBC MORPHOLOGY COMMENT ABNORMAL R
== END 2017-09-29 17:25 | disposition short-term general hospital (02) | DRG 357 ==
LOC: EDUNIT# 19:41 → EMS 19:44 → 6N 22:26 → ICU 09-20 17:39 → 5S 09-21 09:40
PROVIDERS: ADMIT Internal Medicine; ATTEND Internal Medicine
PROC: 30233N1 Transfusion of Nonautologous Red Blood Cells into Peripheral Vein, Percutaneous Approach (ICD-10-PCS; 2017-09-19)
PROC: 0DJD8ZZ Inspection of Lower Intestinal Tract, Via Natural or Artificial Opening Endoscopic (ICD-10-PCS; principal; 2017-09-20 16:15)
PROC: 04L Lower Arteries, Occlusion (ICD-10-PCS; 2017-09-22)
PROC: B40 Imaging, Lower Arteries, Plain Radiography (ICD-10-PCS; 2017-09-22)
DX: K57.33 Diverticulitis of large intestine without perforation or abscess with bleeding (principal); K56.609 Unspecified intestinal obstruction, unspecified as to partial versus complete obstruction; I31.3 Pericardial effusion (noninflammatory); I31.9 Disease of pericardium, unspecified; E44.1 Mild protein-calorie malnutrition; D50.0 Iron deficiency anemia secondary to blood loss (chronic); E87.6 Hypokalemia; K44.9 Diaphragmatic hernia without obstruction or gangrene; K86.9 Disease of pancreas, unspecified; J47.9 Bronchiectasis, uncomplicated; K40.90 Unilateral inguinal hernia, without obstruction or gangrene, not specified as recurrent; B96.20 Unspecified Escherichia coli [E. coli] as the cause of diseases classified elsewhere; R00.0 Tachycardia, unspecified; Z90.710 Acquired absence of both cervix and uterus; Z87.891 Personal history of nicotine dependence; Z88.5 Allergy status to narcotic agent; Z28.21 Immunization not carried out because of patient refusal; Z68.25 Body mass index [BMI] 25.0-25.9, adult
CPT/HCPCS: 36245; 74010; 74175; 74177; 75894; 76937; 83735; 84132; 85014; 85018; 86301; 86850; 86900; 86901; 86920; 87081; 87086; 93005; 93306; 94640; 96360; 97163; 97530; 99285; C9113; J0360; J0690; J1610; J1644; J2060; J2250; J2405; J2543; J2704; J2930; J3010; J3480; J3490; J7030; J7040; J7050; P9016; Q9967